=== PATIENT | female | born 1965 | race Two or more races ===

== ENCOUNTER 2019-05-24 16:53 | Emergency (ER) | payer OTHER ==
[~2019-05-24] VITALS: Ht 175.3 cm; Wt 104.3 kg
[2019-05-24] MEDS ORDERED: MEDROLPACK PO (22:17)
[2019-05-24] MEDS ORDERED: ZITHROMAX500 MG PO (22:17)
== END 2019-05-24 22:23 | disposition home or self-care (01) ==
LOC: ER 16:53
DX: J02.8 Acute pharyngitis due to other specified organisms (principal)
CPT/HCPCS: 70491; Q9965